=== PATIENT | male | born 1975 | race Caucasian/White ===

== ENCOUNTER 2021-11-22 09:10 | Outpatient (CLI) | payer OTHER, SELFPAY ==
[2021-11-22 14:07] LABS: Chloride* 104 mmol/L (96-114); Potassium* 4.9 mmol/L (3.6-5.1); Sodium* 139 mmol/L (135-149)
[2021-11-22 14:10] LABS: Blood Urea Nitrogen* 14 mg/dL (5-24); Carbon Dioxide* 31 mmol/L (20-32); Cholesterol* 213 mg/dL (90-199); Creatinine* 0.9 mg/dL (0.5-1.5); Estimated Glomerular Filt Rate 107 ml/min; Glucose* 95 mg/dL (60-115)
[2021-11-22 14:11] LABS: Calcium* 9.4 mg/dL (8.4-10.6); HDL Cholesterol* 38 mg/dL (>=40); LDL Cholesterol Calculated 94 mg/dL (<100)
[2021-11-22 14:24] LABS: Triglycerides* 403 mg/dL (40-149)
== END 2021-11-22 09:11 | disposition home or self-care (01) ==
PROVIDERS: PCP Family Medicine; Visit Provider Family Medicine
DX: Z00.00 Encounter for general adult medical examination without abnormal findings (principal); K50.00 Crohn's disease of small intestine without complications; Z13.6 Encounter for screening for cardiovascular disorders
CPT/HCPCS: 80048; 80061

== ENCOUNTER 2023-02-27 09:30 | Outpatient (CLI) | payer BC, SELFPAY | END 2023-02-27 09:31 | disposition home or self-care (01) | PROVIDERS: PCP Family Medicine; Visit Provider Family Medicine | DX: Z00.00 Encounter for general adult medical examination without abnormal findings (principal); E78.5 Hyperlipidemia, unspecified; R63.4 Abnormal weight loss | CPT/HCPCS: 80061; 80076; 84443 ==

== ENCOUNTER 2024-07-20 10:41 | Outpatient (CLI) | payer OTHER, SELFPAY | END 2024-07-20 10:42 | disposition home or self-care (01) | PROVIDERS: PCP Family Medicine; Visit Provider Family Medicine | DX: R63.4 Abnormal weight loss (principal); E78.5 Hyperlipidemia, unspecified; Z13.29 Encounter for screening for other suspected endocrine disorder | CPT/HCPCS: 80076; 84439; 84443 ==

== ENCOUNTER 2025-01-30 08:30 | Outpatient (CLI) | payer OTHER, SELFPAY | END 2025-01-30 08:31 | disposition home or self-care (01) | PROVIDERS: PCP Family Medicine; Visit Provider Family Medicine | DX: R53.83 Other fatigue (principal); Z13.1 Encounter for screening for diabetes mellitus; Z13.6 Encounter for screening for cardiovascular disorders | CPT/HCPCS: 80048; 80061; 84403 ==

== ENCOUNTER 2025-02-15 08:25 | Outpatient (CLI) | payer OTHER, SELFPAY | END 2025-02-15 08:26 | disposition home or self-care (01) | LOC: NFLDREF 02-16 18:59 | PROVIDERS: PCP Family Medicine; Referring Provider Family Medicine; Visit Provider Family Medicine | DX: E29.1 Testicular hypofunction (principal); Z12.5 Encounter for screening for malignant neoplasm of prostate | CPT/HCPCS: 84270; 84402; 84403; G0103 ==

== ENCOUNTER 2025-03-06 09:07 | Outpatient (CLI) | payer OTHER, SELFPAY | END 2025-03-06 09:08 | disposition home or self-care (01) | LOC: LKVREF 09:08 | PROVIDERS: PCP Family Medicine; Visit Provider Family Medicine | DX: Z01.818 Encounter for other preprocedural examination (principal) | CPT/HCPCS: 80048 ==

== ENCOUNTER 2025-03-20 06:14 | Day surgery (SDC) | payer OTHER, SELFPAY ==
[2025-03-20] VITALS (16 sets, daily range): BP systolic 74–168; BP diastolic 53–96; PULSE 46–97; RESP 14–20; TEMP 36.7–37.7; O2SAT 93–98; BMI 25.1
[2025-03-20] MEDS: SODIUM CHLORIDE 0.9 % (FLUSH) 10 ML SYRINGE IVF (06:47)
[2025-03-20] MEDS: LACTATED RINGERS 1000 ML 1,000 ML 100 ML IV ×2 (06:47→09:06)
--- NOTE | 2025-03-20 07:28 | W.PM.H&PU ---
History & Physical Update History & Physical Update H&P Reviewed and patient assessed: No changes noted
--- NOTE | 2025-03-20 07:30 | P.GSOP_ITS ---
Operative Note Date of procedure: 03/20/25 Pre-op diagnosis: 1. Symptomatic umbilical hernia. Post-op diagnosis: Same Type of Procedure: 1. Open umbilical hernia repair with mesh. Indications: 49-year-old male was seen in clinic for evaluation of an umbilical bulge. Patient was initially told that he had an umbilical hernia by his primary care doctor during one of the annual exams. In the last year patient noticed that the bulge has been increasing in size. Patient complains of pain at the bulge that is present with coughing and sneezing. Patient usually holds his bulge when he is coughing to reduce the pain. Patient is having regular bowel movements and denies episodes of incarceration. On clinical exam patient has well-healed scars from bilateral inguinal hernia repair as a child. At the superior aspect of the umbilicus he has a grape sized bulge that is reducible. The fascial defect is approximately 1 cm. Given patient's clinical history and his symptoms, an open umbilical hernia repair was recommended. The procedure was discussed in detail. The risks associated procedure including infection, bleeding, injury to intra-abdominal organs, and hernia recurrence were all discussed with the patient. 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 Patient has been holding [employer] for 4 weeks prior to his surgery. Procedure Description: After discussing the risks and benefits of the procedure, the patient signed informed consent.? The operative site was marked and the patient was brought to the operating room and placed on the operating table in supine position.? Care was taken to pad the patient's pressure points.?? The patient was then intubated by anesthesia.?? The operative site was then prepped and draped in the usual sterile fashion.? A time-out was then performed. A curvilinear skin incision was made with a scalpel just above umbilicus. Subcutaneous tissue was dissected with electrocautery down to the hernia sac and anterior fascia. Preperitoneal fat was noted to be incarcerated through the hernia defect. This fat was mobilized off the hernia defect and reduced into preperitoneal space. The hernia sac was dissected off of the anterior fascia and subcutaneous fat around the fascial defect was dissected away from the fascial defect with cautery. The fascial defect was 8 mm. 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 I then developed preperitoneal space for mesh insertion. Hemostasis was achieved with cautery. A small Ventralex ST mesh patch was then inserted into preperitoneal space and secured to the fascia using 0-0 Neurolon interrupted stitches. I examined my closure and no defects were identified between the fascia and the mesh. Fascia was re-approximated over the mesh with a running 2-0 Vicryl stitch. Local anesthetic was injected into subcutaneous tissues. An umbilicus was tacked down with interrupted 3-0 Vicryl stitches. Subdermal layer was closed with interrupted sutures using 3-0 Vicryl. Skin was closed with 4-0 Monocryl using subcuticular stitch. Steri strips were applied over the incision. I then placed a folded sterile 2 x 2 and 4x4 gauze over the incision and covered it with tape. All counts were correct at the end of the case. Patient tolerated the procedure well and was transferred to PACU without any complications. Findings: Small fascial defect, repaired with small Ventralex ST patch. Anesthesia: GETA Surgeon: Vazquez Hinson MD Estimated blood loss (mL): 5 Condition: stable Disposition: PACU
[2025-03-20] MEDS: CEFAZOLIN 2 GM INJ IVP (07:40)
[2025-03-20] MEDS: BUPIVACAINE 0.25% 30 ML INJECTION (07:54)
[2025-03-20] MEDS: MEPERIDINE 25 MG/ML INJ 12.5 MG IVP (09:00)
--- NOTE | 2025-03-20 09:02 | P.ANES_ITS ---
Anesthesia Charges Start Date/Time Anesthesia Start Date: 03/20/25 Anesthesia Start Time: 07:29 Stop Date/Time Anesthesia Stop Date: 03/20/25 Anesthesia Stop Time: 08:59 Coding CPT Codes CPT Codes: ANESTH REPAIR OF HERNIA - 56483 ([id number]) P2 - PATIENT W/MILD SYST DISEASE, QZ - ROLLER STITCHER SVC W/O SEAM STEAMER BY
--- NOTE | 2025-03-20 09:02 | W.ANESCHARGE ---
Anesthesia Charges Start Date/Time Anesthesia Start Date: 03/20/25 Anesthesia Start Time: 07:29 Stop Date/Time Anesthesia Stop Date: 03/20/25 Anesthesia Stop Time: 08:59 Coding CPT Codes CPT Codes: ANESTH REPAIR OF HERNIA - 79293 ([id number]) P2 - PATIENT W/MILD SYST DISEASE, QZ - METER INSTALLER AND REMOVER SVC W/O DYE TUB TENDER BY
[2025-03-20] MEDS: ONDANSETRON 2 MG/ML inj 4 MG IVP (10:32)
--- NOTE | 2025-03-20 10:41 | SUR.PHASEII ---
Sat patient up at 10:25 to get ready for discharge. Patient felt lightheaded and nauseous. BP cycled at 10:30, 79/53, diaphoretic. Patient alert and responsive. Zofran given. Anesthesiologist aware. Orders to keep patient supine and open fluids. Will continue to assess.
== END 2025-03-20 11:14 | disposition home or self-care (01) ==
PROVIDERS: PCP Family Medicine; Visit Provider Surgery
PROC: (CPT 49591; principal; 2025-03-20 07:30)
DX: K42.9 Umbilical hernia without obstruction or gangrene (principal)
CPT/HCPCS: 49591; 00830; A9270; C1781; J0330; J0665; J0690; J1100; J1171; J1885; J2175; J2250; J2405; J2704; J2710; J3010; J7120

== ENCOUNTER 2025-04-05 14:16 | Outpatient (CLI) | payer OTHER, SELFPAY ==
--- NOTE | 2025-04-05 14:30 | CRLHL7_ITS ---
For Patients: As a result of the Century Cures Act, medical imaging exams and procedure reports are released immediately into your electronic medical record. You may view this report before your referring provider. If you have questions, please contact your health care provider. INDICATION: Shortness of breath TECHNIQUE: Chest 2 views COMPARISON: 02/05/2023 FINDINGS: Cardiovascular and mediastinum: Heart size and vasculature are normal in caliber and appearance. Lungs and pleural spaces: Lungs are clear. No sign of infiltrate or mass. No sign of pleural effusion. No pneumothorax. Bones and soft tissues: No significant findings. IMPRESSION: No acute findings. Dictated by Abdias Stanford MD @ 04/06/2025 9:04:22 AM (Electronically Signed)
== END 2025-04-05 14:17 | disposition home or self-care (01) ==
LOC: RAD 14:17
PROVIDERS: PCP Family Medicine; Visit Provider Surgery
DX: R06.02 Shortness of breath (principal)
CPT/HCPCS: 71046